=== PATIENT | male | born 1985 | race Caucasian/White ===

== ENCOUNTER 2022-08-14 11:21 | Day surgery (SDC) | payer OTHER ==
[2022-08-11 15:37] VITALS: BMI 33.7
[~2022-08-14 11:21] MED LIST: LACTATED RINGERS SOLUTION 1,000 ML IV SCH; ONDANSETRON 4 MG/2 ML VIAL IVPUSH PRN; oxyCODONE HCL 5 MG TABLET PO PRN
[2022-08-14] MEDS ORDERED: BUPIVACAINE HCL/EPINEPHRINE/PF 30 ML VIAL IJ ONE (12:50)
[2022-08-14] MEDS ORDERED: BUPIVACAINE HCL/PF 0.5% (5 MG/ML) 30 ML VIAL IJ ONE (12:59)
[2022-08-14] MEDS ORDERED: ACETAMINOPHEN INJECTION 100 ML IVPB ONE (12:59)
[2022-08-14] MEDS ORDERED: DEXAMETHASONE SOD PHOSPHATE/PF 10 MG/ML SDV ONE (12:59)
[2022-08-14] MEDS ORDERED: MIDAZOLAM HCL 2 MG/2 ML SINGLE DOSE VIAL ONE ×2 (13:01→14:59)
[2022-08-14] MEDS ORDERED: PROPOFOL 20 ML ONE ×2 (13:18→15:10)
[2022-08-14] MEDS ORDERED: VANCOMYCIN 1,000 MG VIAL (RESTRICTED TO ID ONLY) ONE ×2 (13:31→15:28)
[2022-08-14] MEDS ORDERED: DEXAMETHASONE SOD PHOSPHATE 4 MG/1 ML VIAL ONE (13:39)
[2022-08-14] MEDS ORDERED: ONDANSETRON 4 MG/2 ML VIAL ONE (13:39)
[2022-08-14] MEDS ORDERED: ceFAZolin SODIUM 1 GM VIAL ONE ×3 (13:39→13:40)
[2022-08-14] MEDS ORDERED: TRANEXAMIC ACID 1000 MG/10 ML VIAL ONE (15:23)
[2022-08-14] MEDS ORDERED: ONDANSETRON 4 MG/2 ML VIAL IVPUSH PRN (16:05)
[2022-08-14] MEDS ORDERED: oxyCODONE HCL 5 MG TABLET PO PRN (16:05)
[2022-08-14] MEDS ORDERED: FENTANYL CITRATE/PF 50 MCG/ML VIAL ONE (16:12)
[2022-08-14 16:45] VITALS: RESP 18; TEMP 98
[2022-08-14] MEDS ORDERED: oxyCODONE HCL 5 MG TABLET ONE (16:47)
[2022-08-14] MEDS ORDERED: oxyCODONE HCL 5 MG TABLET PO ONE (16:47)
[2022-08-14 17:28] VITALS: BP 113/71; PULSE 69
== END 2022-08-14 17:36 | disposition home or self-care (01) ==
LOC: FASU 11:21
PROVIDERS: ATTEND Orthopaedic Surgery
PROC: 0KQ60ZZ Repair Left Shoulder Muscle, Open Approach (ICD-10-PCS; principal; 2022-08-14 14:06)
DX: S29.021A Laceration of muscle and tendon of front wall of thorax, initial encounter (principal); X58.XXXA Exposure to other specified factors, initial encounter; Y93.9 Activity, unspecified; Y92.9 Unspecified place or not applicable
CPT/HCPCS: 94760; C1713